=== PATIENT | female | born 1945 | race Two or more races ===

== ENCOUNTER → 2024-05-17 12:51 | Outpatient (REF) | payer MEDICARE, SELFPAY | LOC: EMG 12:51 | PROVIDERS: ATTENDING PHYSICIAN Orthopaedic Surgery Hand Surgery; FAMILY PHYSICIAN Obstetrics & Gynecology | DX: S63.659A Sprain of metacarpophalangeal joint of unspecified finger, initial encounter (principal); G56.01 Carpal tunnel syndrome, right upper limb | CPT/HCPCS: 95886; 95911 ==

== ENCOUNTER 2024-06-29 18:32 | Emergency (ER) | payer MEDICARE, OTHER, SELFPAY ==
[2024-06-29 18:39] VITALS: BP 173/88
[2024-06-29 19:04] LABS: % Basophils 0.6 % (0-2); % Eosinophils 1.2 % (0-6); % Immature Granulocytes 0.3 % (0-0.5); % Lymphocytes 27.7 % (20.5-51.1); % Monocytes 7.2 % (1.7-9.3); Absolute Basophils 0.1 10^3/uL (0-0.2); Absolute Eosinophils 0.1 10^3/uL (0-0.7); Absolute Lymphocytes 2.2 10^3/uL (1.2-3.4); Absolute Monocytes 0.6 10^3/uL (0.1-0.6); Absolute Neutrophils 4.9 10^3/uL (1.4-6.5); Hemoglobin 14.3 g/dL (12.0-16.0); Mean Corpuscular Hgb 31.2 pg (27.0-31.0); Mean Corpuscular Volume 91.5 fL (81.0-99.0); Nucleated Red Blood Cells % 0 %; Platelet Count 255 10^3/uL (130-400); Red Blood Cell Count 4.59 10^6/uL (4.20-5.40); Red Cell Dist. Width 12.7 % (11.5-14.5); White Blood Cell Count 7.8 10^3/uL (4.8-10.8)
[2024-06-29 19:16] LABS: ALT (SGPT) 22 U/L (0-35); AST (SGOT) 27 U/L (14-36); Albumin 4.6 g/dl (3.5-5.0); Alkaline Phosphatase 76 U/L (38-126); Blood Urea Nitrogen 30 mg/dl (7-17); Calcium 10.4 mg/dl (8.4-10.2); Carbon Dioxide 35 mmol/L (22-30); Chloride 97 mmol/L (98-107); Glucose 131 mg/dl (70-99); Potassium 4.1 mmol/L (3.5-5.1); Sodium 140 mmol/L (135-145); Total Bilirubin 1.2 mg/dl (0.2-1.3); Total Protein 7.2 g/dl (6.3-8.2); eGFR > 60.00
--- NOTE | 2024-06-29 19:48 | ED.GENMED ---
Addendum entered and electronically signed by Pam Bansal NP 06/30/24 15:47:
Patient called wondering if 300 mg of Neurontin twice a day might be too much for her, she has to be alert for work, she requested gabapentin 100 mg capsules that she has a friend who takes them. I sent a prescription to her pharmacy for gabapentin
100 mg twice daily x 10 days
Original Note:
History of Present Illness
General
Chief Complaint: Headache
Source: patient
Exam Limitations: none
Time Seen by Provider: 06/29/24 19:30
Nursing documentation reviewed up to this point in time: agreed with
History of Present Illness
History of Present Illness:
79-year-old female presents emergency room complaining of burning sensation radiating from right side of her head to her right neck. She reports she was moving furniture.
Past History
Past History
ED Past Medical History: Other (Diverticulitis, Murtaza's thyroiditis)
ED Past Surgical History: Appendectomy, Gynecological (Fibroid tumor removal), Orthopedic (Ganglion cyst removal) and Other (Liver biopsy)
Social History
Tobacco: Non-smoker
Alcohol: None
Drug: None
Review of Systems
Review of Systems
Allergies reviewed?: Yes
All Other Systems: Not applicable
Constitutional: Reports no symptoms
EENT: Reports no symptoms
Respiratory: Reports no symptoms
Cardiac: Reports no symptoms
ABD/GI: Reports no symptoms
: Reports no symptoms
Musculoskeletal: Reports neck pain
Skin: Reports no symptoms
Neurological: Reports headache
Endocrine: Reports no symptoms
Hematologic/Lymphatic: Reports no symptoms
Psychiatric: Reports no symptoms
Phy Exam
Physical Exam
Physical Exam:
Physical Exam
General: no apparent distress, not acutely ill
Neck: supple. no meningeal signs. normal posterior pharynx
Heart: s1/s2 regular rate and rhythm, no murmur. equal radial
pulses.
HEENT: Pupils equal round reactive to light, EOMI
Lungs: no acute respiratory distress. clear bilaterally
Abdomen: normal bowel sounds. not tender. no CVAT
Neuro: alert and oriented. no focal neurological deficits cranial nerves II through XII intact
Skin: no rash
Psychiatric: well kept. interactive and cooperative
Extremities: no edema. no calf tenderness. negative homans. good distal pulses
Course
Orders/Labs/Results
Orders:
Orders
06/29/24 18:49
Comprehensive Metabolic Panel Urgent
06/29/24 18:50
Complete Blood Count/With Diff Urgent
06/29/24 19:47
CT Cervical Spine W/o Iv Contr Urgent
Comment:
Reason For Exam: neck pain, right side headache, prior injury
CT Head W/o Iv Contrast Urgent
Comment:
Reason For Exam: headache, right sided, neck pain
06/29/24 22:10
Acetaminophen [Tylenol] 650 mg PO NOW STA
Abnormal Lab Results
06/29/24 06/29/24
18:49 18:50
MCH 31.2 H pg
(27.0-31.0)
MPV 11.0 H fL
(7.4-10.4)
Chloride 97 L mmol/L
(98-107)
Carbon Dioxide 35 H mmol/L
(22-30)
BUN 30 H mg/dl
(7-17)
Glucose 131 H mg/dl
(70-99)
Calcium 10.4 H mg/dl
(8.4-10.2)
06/29/24 18:50
06/29/24 18:49
Vital Signs
Initial and Last Documented VS:
Initial Vital Signs
Pulse Resp BP Pulse Ox
75 18 173/88 100
06/29/24 18:39 06/29/24 18:39 06/29/24 18:39 06/29/24 18:39
Last Documented Vital Signs
Temp Pulse Resp BP Pulse Ox
97.8 F 63 18 122/82 98
06/29/24 18:44 06/29/24 20:55 06/29/24 18:39 06/29/24 23:00 06/29/24 21:08
MDM/Problems Addressed
Differential Diagnosis Includes:
CVA, carotid dissection
MDM/Problems Addressed:
79-year-old female with likely verbal radiculopathy. Versus neck strain. Do not suspect carotid dissection. Treat with Neurontin, follow-up with primary care and neurosurgery.
*Radiology
Radiology exam reviewed: radiology read reviewed (CT head no acute findings, CT cervical spine no acute findings, chronic degenerative changes)
*Pulse Oximetry
Patient hypoxic: no
*Critical Care Note
Total Time (30-74mins, 75-104mins- exclusive of procedures): Not Applicable
Patient Management
Social determinants of health affecting care: Living situation
Escalation/DeEscalation of care consider admission/obs:
Admit not indicated
ED Attending Note
-
Portions of this chart may have been created with voice recognition software.� Occasional wrong word or��sound alike� substitutions may have occurred due to the inherent limitations of voice recognition software.
Discharge Plan
Departure
Patient Disposition: Home (Routine Discharge)
Date of Disposition: 06/29/24
Time of Disposition: 23:07
Patient with high blood pressure during this ER visit?: Yes
Condition: Good
Discharge Problem:
Headache, Cervical radiculopathy
Instructions: Radiculopathy (DC), Headache, Adult (DC), BLOOD PRESSURE
Prescriptions:
New
gabapentin [Neurontin] 300 mg capsule
300 mg PO BID PRN (Reason: neck pain) Qty: 30 0RF
Referrals:
NONE,* [Family Provider] -
Catrina Izquierdo MD [Active] - Call in 1-3 days for appt
Interventions
Interventions:
*Risk Screen - Suicide Last Done: 06/29/24 20:06
*General Assessment Last Done: 06/29/24 20:06
*Neglect/Abuse Screening Last Done: 06/29/24 20:06
ED- Fall Risk Assessment Last Done: 06/29/24 23:28
*ED COVID-19 Vaccine History Last Done: 06/29/24 20:06
*Nursing Disposition Last Done: 06/29/24 23:28
ED- Neurological Assessment Last Done: 06/29/24 19:50
Discharge Date and Time
Discharge Date/Time: 06/29/24 23:29
Print Language: CZECH
[2024-06-29 20:08] VITALS: BMI 22.3
[2024-06-29 20:39] VITALS: BP 163/71
[2024-06-29 21:00] VITALS: BP 169/83
[2024-06-29] MEDS: TYLENOL 650 MG PO (22:20)
[2024-06-29 22:22] VITALS: BP 162/77
[2024-06-29 23:00] VITALS: BP 122/82
== END 2024-06-29 23:29 | disposition home or self-care (01) ==
LOC: EMR 18:32
PROVIDERS: Emergency Medicine; EMERGENCY PHYSICIAN Emergency Medicine
DX: R51.9 Headache, unspecified (principal); M47.22 Other spondylosis with radiculopathy, cervical region; E06.3 Autoimmune thyroiditis; Z90.49 Acquired absence of other specified parts of digestive tract
CPT/HCPCS: 99284; 70450; 72125; 80053; 85025